=== PATIENT | female | born 1975 | race African-American/Black ===

== ENCOUNTER 2018-10-04 11:02 | Emergency (ER) | payer OTHER, SELFPAY | END 2018-10-04 12:29 | disposition home or self-care (01) | LOC: ERS 11:02 | DX: B34.9 Viral infection, unspecified (principal); F41.9 Anxiety disorder, unspecified; F32.9 Major depressive disorder, single episode, unspecified; I10 Essential (primary) hypertension; Z87.442 Personal history of urinary calculi | CPT/HCPCS: 99283 ==